=== PATIENT | female | born 1995 | race African-American/Black ===

== ENCOUNTER 2024-08-07 21:06 | Emergency (ER) | payer MEDICAID, OTHER ==
[~2024-08-07] VITALS: Ht 165.1 cm; Wt 55.0 kg
[2024-08-07 21:25] VITALS: O2SAT 100
[2024-08-07] MEDS: METOCLOPRAMIDE HCL 10MG TABLET PO ONE (23:19)
[2024-08-07] MEDS: KETOROLAC 15MG/ML VIAL IM ONE (23:19)
[2024-08-08] MEDS ORDERED: NAPR-1176 MT (00:50)
[2024-08-08] MEDS ORDERED: LIDO-53 TP (00:50)
[2024-08-08 00:57] VITALS: BP 136/71; PULSE 71; RESP 18; TEMP 37; O2SAT 100
== END 2024-08-08 01:27 | disposition home or self-care (01) ==
LOC: ER 21:06
DX: R51.9 Headache, unspecified (principal); M54.2 Cervicalgia; Z79.1 Long term (current) use of non-steroidal anti-inflammatories (NSAID); V89.2XXA Person injured in unspecified motor-vehicle accident, traffic, initial encounter; Y93.89 Activity, other specified; Y92.410 Unspecified street and highway as the place of occurrence of the external cause; Y99.8 Other external cause status
CPT/HCPCS: 99285; 70450; 81025; 72125; 96372; J1885; J8597